=== PATIENT | female | born 1990 | race African-American/Black ===

== ENCOUNTER 2022-07-18 12:47 | Emergency (ER) | payer MEDICAID ==
[~2022-07-18] VITALS: Ht 165.1 cm; Wt 80.0 kg
[2022-07-18 13:01] VITALS: BP 113/66
[2022-07-18] MEDS ORDERED: ACETAMINOPHEN 325MG TABLET PO STA (14:23)
[2022-07-18] MEDS ORDERED: LORAZEPAM 2MG/ML CPJ IV ONE (14:30)
[2022-07-18] MEDS ORDERED: PHENYTOIN SODIUM EXTENDED 100MG CAPSULE PO ONE (14:30)
[2022-07-18 15:55] LABS: CLARITY URINE CLEAR (CLEAR); COLOR URINE YELLOW (YELLOW); KETONES URINE TRACE (NEGATIVE); LEUKOCYTE ESTERASE URINE NEGATIVE (NEGATIVE); NITRITE URINE NEGATIVE (NEGATIVE); OCCULT BLOOD URINE NEGATIVE (NEGATIVE); PROTEIN URINE NEGATIVE (NEGATIVE); SPECIFIC GRAVITY URINE 1.029 (1.005-1.030)
[2022-07-18 15:58] LABS: BASOPHILS % 0.4 % (0.0-2.0); EOSINOPHILS % 1.2 % (0.0-5.0); HEMATOCRIT. 41.6 % (36.0-48.0); HEMOGLOBIN. 13.9 g/dL (12.0-16.0); LYMPHOCYTES % 20.7 % (20.0-50.0); MEAN CORPUSCULAR VOLUME 89.5 fL (81.0-99.0); MONOCYTES % 5.9 % (2.0-8.0); NEUTROPHILS % 71.8 % (40.0-76.0); PLATELET 179 x1000/uL (130-400); RED BLOOD CELL COUNT 4.65 mill/uL (4.2-5.4); RED CELL DISTRIBUTION WIDTH 12.7 % (11.6-14.6)
[2022-07-18 16:03] LABS: CHLORIDE 104 mEq/L (98-107)
[2022-07-18 16:16] LABS: ETHANOL BLOOD < 10 mg/dL
[2022-07-18] MEDS ORDERED: PHEN300C6 MT (17:00)
== END 2022-07-18 17:58 | disposition home or self-care (01) ==
LOC: ER 14:04
DX: G40.909 Epilepsy, unspecified, not intractable, without status epilepticus (principal); R42 Dizziness and giddiness; R51.9 Headache, unspecified; J45.909 Unspecified asthma, uncomplicated; Z88.0 Allergy status to penicillin
CPT/HCPCS: 36415; 80053; 80185; 80320; 81003; 81025; 85025; 96374; 99283; J2060; G0480